=== PATIENT | female | born 1990 | race Caucasian/White ===

== ENCOUNTER 2019-11-01 14:40 | Emergency (ER) | payer OTHER ==
[~2019-11-01] VITALS: Ht 154.9 cm; Wt 68.2 kg
[~2019-11-01 14:40] MED LIST: DOCU5LIQ PO; IBUP80TA PO; PERC7.5T12 PO
[2019-11-01] MEDS ORDERED: ZOLO50TA PO (15:04)
[2019-11-01] MEDS ORDERED: PRENTAB53 PO (15:04)
[2019-11-01 15:28] LABS: BASO % 0.3 % (0.0-1.0); HEMATOCRIT 33.4 % (36.0-47.0); HEMOGLOBIN 11.3 g/dl (12.0-15.5); LYMPH # 1.4 10^3/uL (1.5-5.0); LYMPH % 9.9 % (24.0-44.0); MEAN CORPUSCULAR HEMOGLOBIN 30.9 pg (27.0-33.0); MEAN CORPUSCULAR HGB CONC 33.8 g/dl (32.0-36.5); MEAN CORPUSCULAR VOLUME 91.3 fl (80.0-96.0); MONO # 0.4 10^3/uL (0.0-0.8); MONO % 2.7 % (0.0-5.0); NEUTROPHILS # 12.5 10^3/uL (1.5-8.5); NEUTROPHILS % 86.5 % (36.0-66.0); PLATELET COUNT, AUTOMATED 341 10^3/uL (150-450); RED BLOOD COUNT 3.66 10^6/uL (4.00-5.40); WHITE BLOOD COUNT 14.4 10^3/uL (4.0-10.0)
[2019-11-01] MEDS ORDERED: NS 1,000 ML IV ONE ×2 (15:45→18:00)
[2019-11-01 16:11] LABS: BLOOD UREA NITROGEN 14 MG/DL (7-18); CALCIUM LEVEL 9.2 MG/DL (8.5-10.1); CARBON DIOXIDE LEVEL 23 MEQ/L (21-32); CHLORIDE LEVEL 107 MEQ/L (98-107); GLOMERULAR FILTRATION RATE > 60.0 (>60); GLUCOSE, FASTING 133 MG/DL (70-100); HCG, SERUM QUANTITATIVE 2273 MIU/ML; POTASSIUM SERUM 3.9 MEQ/L (3.5-5.1); SODIUM LEVEL 139 MEQ/L (136-145)
[2019-11-01] MEDS ORDERED: ACETAMINOPHEN TAB 650MG DOSE (2X325MG) PO ONE (16:30)
--- NOTE | 2019-11-01 18:02 | REP ---
PELVIC ULTRASOUND: Real-time sonographic evaluation of the pelvis was performed utilizing transabdominal technique. The uterus measures 13.7 x 4.3 x 6.6 cm. In the posterior myometrium i suspect there is a hypoechoic fibroid 1.2 x 0.9 x 1.5 cm. Endometrial echo complex is thin in the region of the fundus measuring approximately 4 mm in AP dimension, however inferiorly in the lower uterine segment and cervix there is an oval heterogenous hypoechoic area which measures 6.2 x 4.1 x 4.8 cm which I suspect represents large blood clot and retained products of conception. I see no adnexal mass or free fluid. Right ovary measures 2.4 x 2.1 x 2.1 cm and left ovary 3.2 x 1.3 x 2.4 cm. Blood flow is seen in each ovary with duplex Doppler evaluation, with no torsion. The findings above likely represent an in progress. Please correlate clinically as well as with quantitaive serial beta HCG values. Electronically Signed by Anastacio Bowers MD 11/02/2019 10:09 A
[2019-11-01 20:30] VITALS: BP 121/69
== END 2019-11-01 21:15 | disposition home or self-care (01) ==
LOC: M ED 14:40
DX: O03.4 Incomplete spontaneous abortion without complication (principal); O26.819 Pregnancy related exhaustion and fatigue, unspecified trimester; O20.8 Other hemorrhage in early pregnancy; O99.340 Other mental disorders complicating pregnancy, unspecified trimester; Z3A.00 Weeks of gestation of pregnancy not specified; Z79.899 Other long term (current) drug therapy

== ENCOUNTER 2019-11-03 16:10 | Day surgery (SDC) | payer OTHER ==
[~2019-11-03] VITALS: Ht 154.9 cm; Wt 68.0 kg
[~2019-11-03 16:10] MED LIST changes: +LIDOCAINE 1% MDV 20ML VIAL SQ PRN; +NS 1,000 ML IV SCH; +PRENTAB53 PO; +ZOLO50TA PO
[2019-11-03] MEDS ORDERED: ONDANSETRON 4MG/2ML VIAL (J2405) As Ordered ONE (16:23)
[2019-11-03] MEDS ORDERED: PROPOFOL 200 MG/20 ML VIAL As Ordered ONE (16:23)
[2019-11-03] MEDS ORDERED: dexameTHASONE 4 MG/ML 1ML VIAL (J1100) As Ordered ONE (16:23)
[2019-11-03] MEDS ORDERED: LIDOCAINE 2% INJ 100 MG/5 ML SDV (FOR ANES.) As Ordered ONE (16:23)
[2019-11-03] MEDS ORDERED: fentaNYL 100 MCG/2 ML INJECTION (J3010) As Ordered ONE (16:24)
[2019-11-03] MEDS ORDERED: MIDAZOLAM INJ 2 MG/2 ML VIAL (J2250) As Ordered ONE (16:24)
[2019-11-03] MEDS ORDERED: NS 1,000 ML IV SCH (16:30)
[2019-11-03] MEDS ORDERED: ACETAMINOPHEN 650 MG SUPP PR ONE (16:30)
[2019-11-03 16:41] LABS: MEAN CORPUSCULAR HEMOGLOBIN 30.5 pg (27.0-33.0); MEAN CORPUSCULAR HGB CONC 32.8 g/dl (32.0-36.5); PLATELET COUNT, AUTOMATED 291 10^3/uL (150-450); RED BLOOD COUNT 2.13 10^6/uL (4.00-5.40); WHITE BLOOD COUNT 11.6 10^3/uL (4.0-10.0)
[2019-11-03 16:47] LABS: HEMATOCRIT 19.8 % (36.0-47.0); HEMOGLOBIN 6.5 g/dl (12.0-15.5)
[2019-11-03 16:54] LABS: BLOOD UREA NITROGEN 16 MG/DL (7-18); CALCIUM LEVEL 8.3 MG/DL (8.5-10.1); CARBON DIOXIDE LEVEL 25 MEQ/L (21-32); CHLORIDE LEVEL 109 MEQ/L (98-107); CREATININE FOR GFR 0.63 MG/DL (0.55-1.30); GLOMERULAR FILTRATION RATE > 60.0 (>60); GLUCOSE, FASTING 86 MG/DL (70-100); POTASSIUM SERUM 3.6 MEQ/L (3.5-5.1); SODIUM LEVEL 141 MEQ/L (136-145)
[2019-11-03 16:59] LABS: HCG, SERUM QUALITATIVE POSITIVE (NEGATIVE)
[2019-11-03] MEDS ORDERED: LACTATED RINGERS IV SCH (17:45)
[2019-11-03] MEDS ORDERED: LR 1,000 ML IV SCH (17:45)
[2019-11-03] MEDS ORDERED: SUCCINYLCHOLINE 100 MG/5 ML SYRINGE (J0330) As Ordered ONE (17:58)
[2019-11-03 18:20] VITALS: BP 107/58
[2019-11-03 18:54] VITALS: BP 112/57
[2019-11-03 20:11] LABS: HEMATOCRIT 22.9 % (36.0-47.0); HEMOGLOBIN 7.7 g/dl (12.0-15.5)
[2019-11-03 21:36] LABS: HCG, SERUM QUANTITATIVE 666 MIU/ML
[2019-11-03] MEDS ORDERED: miSOPROStol 200 MCG TAB (S0191) As Ordered ONE (21:41)
[2019-11-03] MEDS ORDERED: ACETAMINOPHEN 650 MG SUPP As Ordered ONE (21:42)
[2019-11-03] MEDS ORDERED: OXYTOCIN INJ 10 UNITS/ML VIAL (J2590) As Ordered ONE ×2 (22:03→22:13)
[2019-11-03] MEDS ORDERED: PHENYLephrine HCL 500 MCG/5 ML (100MCG/ML) SYRINGE (J2370) As Ordered ONE (22:08)
[2019-11-03] MEDS ORDERED: ceFAZolin 2 GM/D5W 50 ML IV BAG (J0690 PER 500MG) As Ordered ONE (22:13)
[2019-11-03] MEDS ORDERED: MEPERIDINE INJ 25 MG/ML VIAL (J2175) As Ordered ONE (22:38)
[2019-11-03] MEDS ORDERED: MEPERIDINE INJ 25 MG/ML VIAL (J2175) IV PRN (23:00)
[2019-11-03] MEDS ORDERED: fentaNYL 100 MCG/2 ML INJECTION (J3010) IV PRN (23:00)
[2019-11-03] MEDS ORDERED: oxyCODONE 5MG TAB PO PRN (23:00)
[2019-11-03] MEDS ORDERED: ONDANSETRON 4MG/2ML VIAL (J2405) IV PRN (23:00)
[2019-11-03 23:06] VITALS: BP 111/65
[2019-11-03 23:21] VITALS: BP 104/61
[2019-11-03 23:50] VITALS: BP 99/59
[2019-11-04] VITALS (8 sets, daily range): BP systolic 97–106; BP diastolic 54–66
[2019-11-04] MEDS: KETOROLAC 30 MG/ML VIAL (J1885) IV SCH ×2 (01:29→06:16)
[2019-11-04 05:29] LABS: HEMATOCRIT 30.3 % (36.0-47.0); MEAN CORPUSCULAR HEMOGLOBIN 29.7 pg (27.0-33.0); MEAN CORPUSCULAR HGB CONC 33.7 g/dl (32.0-36.5); MEAN CORPUSCULAR VOLUME 88.3 fl (80.0-96.0); PLATELET COUNT, AUTOMATED 208 10^3/uL (150-450); RED BLOOD COUNT 3.43 10^6/uL (4.00-5.40); WHITE BLOOD COUNT 10.2 10^3/uL (4.0-10.0)
[2019-11-04 05:32] LABS: HEMOGLOBIN 10.2 g/dl (12.0-15.5)
[2019-11-04] MEDS ORDERED: FLUBLOK(EGG FREE)(QUAD)INFLUENZA VACC 0.5ML SYRINGE (90682)18YRS&OLDER IM ONE (07:30)
--- NOTE | 2019-11-04 19:35 | DSES ---
DATE OF ADMISSION: 11/03/2019 DATE OF DISCHARGE: 11/04/2019 This lady is a 4, para 3 who was admitted through emergency with a history of spontaneous of over two days duration. When she was seen initially, she appeared to be hypotensive, pale, tachycardia, and she was bleeding moderately per vagina. Her initial hemoglobin was 6.5, hematocrit was 19.8. She was given two units of packed cells prior to being taken to the operating room (OR) and her hemoglobin went to 7.7, hematocrit of 22.9. Despite that, she was taken to the OR, had a suction dilation and curettage (D C), a moderate amount of tissue and placenta and clots were removed and evacuated. The uterus was contracted well down on Pitocin. She was given Cytotec 1000 mg per rectum. She had two more units of packed cells and her stabilized hemoglobin was 10.2, hematocrit 30.3. Vital signs on discharge, her blood pressure 106/62, respirations 16, pulse 70, temperature 97.7. She had been afebrile throughout the entire procedure. She was given prophylactic antibiotics prior to the procedure commencing. We discussed phlebitis, cystitis, mastitis, endometritis and cellulitis, diet, exercise, pain management, perineal and wound care. The rest of the examination was unremarkable. Normocephalic, atraumatic. Neck: Full range of motion. Pupils equal and reactive to light. Distal pulses are symmetric. No evidence of deep vein thrombosis (DVT), pulmonary embolism (PE) or superficial phlebitis. Chest is clear bilaterally to bases. No wheezes or rhonchi. No costovertebral angle (CVA) tenderness. No rashes, lesions or pruritus. No arthralgia or myalgia. No complaint of joint pain. No complaint of cough, wheeze, shortness of breath or dyspnea on exertion. Her bleeding has been minimal. She is now pain-free pelvically. She was dispensed with medications. She has a two-week followup with Dr. Small. She was counseled regarding fever, increased bleeding, when to call her provider. In summary, we have a spontaneous late with a category III hemorrhage, discharged improved.
--- NOTE | 2019-11-24 13:50 | RO ---
DATE OF PROCEDURE: 11/03/2019 PREOPERATIVE DIAGNOSES: Anemia, hypotension, retained products of conception. POSTOPERATIVE DIAGNOSES: Anemia, retained products of conception, vaginal bleeding. OPERATION PROPOSED: Suction curettage. OPERATION PERFORMED: Suction curettage. SURGEON: Chris Small MD LEAD NET SOFTWARE DEVELOPER: ANESTHESIA: General. ESTIMATED BLOOD LOSS: 600 mL. DESCRIPTION OF PROCEDURE: This lady had a missed and had followed up with her primary care subsequently came to see BOROUGH COORDINATOR and while in the office had a hypotensive episode with tachycardia, orthopnea and was sent to the holding unit for urgent blood transfusion. After adequate stabilization with 2 units of packed cells onboard, after adequate time-out, prepped and draped in the lithotomy position, a Farris catheter in the bladder draining clear urine. Weighted speculum in the vagina we noticed a large mass of placental tissue and clot organized through an almost completely dilated cervix. This was removed and there was moderate amount of bleeding. Suction curettage was done with a #12 suction curette. Eventually all the retained products were removed from the uterus. The uterus took a significant time to contract down. Pitocin was running. The patient was given Cytotec 1000 per rectum and vigorous massage. The uterus eventually contracted well down and we had well over 600 mL of clot and fresh blood. The patient had received appropriate antibiotic coverage preoperative procedure. The patient was sent to recovery room in stable condition requiring two more units of packed cells.
== END 2019-11-04 09:00 | disposition home or self-care (01) ==
LOC: M SDC 16:10 → M PED 23:43 → M SDC 11-04 09:00
PROVIDERS: ATTEND Obstetrics & Gynecology
DX: D62 Acute posthemorrhagic anemia (principal); I95.9 Hypotension, unspecified; O03.1 Delayed or excessive hemorrhage following incomplete spontaneous abortion; R00.0 Tachycardia, unspecified; R06.01 Orthopnea; F41.9 Anxiety disorder, unspecified
CPT/HCPCS: 36415; 36430; 59820; 80048; 84702; 84703; 85014; 85018; 85027; 86850; 86900; 86901; 86920; 88305; 90682; J0330; J0690; J1100; J1885; J2175; J2250; J2370; J2405; J2590; J3010; P9016

== ENCOUNTER 2020-08-07 05:28 | Inpatient (IN) | payer OTHER ==
--- NOTE | 2020-08-02 08:25 | HPE ---
DATE OF ANTICIPATED ADMISSION: 08/09/2020 HISTORY OF PRESENT ILLNESS: This lady is a 29-year-old 5 para 3 who is admitted for elective repeat section and satisfied parity bilateral tubal ligation by Filshie clip. PAST MEDICAL HISTORY: August 2012 at 40 weeks section, 10 pounds 11 ounces macrosomic . October 2104 at 39 weeks repeat section macrosomic , 9 pounds 10 ounces, AGDM2. July 2016 at 38 weeks, repeat section male, 8 pounds 6 ounces. October 2019, spontaneous at 11 weeks with D and C. LAB VALUES: She is A positive, HIV negative, Hep negative, RPR negative, Rubella immune, Varicella immune. Pap is normal. Urine was positive for mixed group and Group B strep. Gonorrhea and Chlamydia are negative. One hour glucose was 149. Her 28 week glucose was 167. Her 3 hour glucose fasting was 167. Her 3 hour glucose fasting was 100, one hour was 146, two hour was 142, and three hour was 55. She has been on Metformin 500 mg p.o. daily and is well controlled. PHYSICAL EXAMINATION: On examination today, blood pressure 118/77, respirations are 18, pulse is 100, and she is afebrile. Her initial BMI was 30.42, presently she is 51 at 178 pounds. The rest of the examination is unremarkable. Normocephalic, atraumatic. Neck full range of motion. Pupils are equal and reactive to light. Distal pulses are symmetric. No evidence of DVT, PE, or superficial phlebitis. Chest is clear bilaterally to bases. No wheezes or rhonchi. No CVA tenderness. Abdomen is soft. Four quadrant bowel sounds are noted. Incision is present and nontender. She has no rashes, lesions, or pruritus. No arthralgia or myalgia. No complaint of joint pain. No complaint of cough, shortness of breath, or dyspnea on exertion. No nausea, vomiting, diarrhea, or constipation. No urgency or frequency. ASSESSMENT: In discussion of repeat section and bilateral tubal ligation, risks were discussed, hemorrhage, infection, perforation, , re- operation with remote possibility of hysterectomy for life threatening bleeding issues, and remote possibility of blood transfusion. There is also a remote possibility of laceration and/or admission to the NICU. With all discussions, the patient expressed understanding of the risks and benefits. In regards to her tubal ligation, risk of failure is less than 1%, risk of tubal ligation syndrome was discussed, and chronic pelvic pain or heavy periods was also discussed. Expressed understanding of same. Signed consent form. All questions were answered. A 40 minute discussion with examination. The patient is booked for repeat section and bilateral tubal ligation on August 09, 2020. MARKIE
[~2020-08-07] VITALS: Ht 154.9 cm; Wt 80.5 kg
[~2020-08-07 05:28] MED LIST changes: -LIDOCAINE 1% MDV 20ML VIAL SQ PRN; +METF500T13 PO; -NS 1,000 ML IV SCH
[2020-08-07] MEDS ORDERED: AZITHROMYCIN INJ 500MG VIAL (J0456 PER 500MG) As Ordered ONE (05:48)
[2020-08-07] MEDS ORDERED: ceFAZolin 2 GM/D5W 50 ML IV BAG (J0690 PER 500MG) As Ordered ONE (05:48)
[2020-08-07] MEDS ORDERED: BICITRA 30ML SOLN UDC As Ordered ONE (05:48)
[2020-08-07] MEDS ORDERED: TERBUTALINE SULFATE 1 MG/ML VIAL (J3105) As Ordered ONE (05:52)
[2020-08-07 06:22] LABS: HEMATOCRIT 42.1 % (36.0-47.0); HEMOGLOBIN 14.3 g/dl (12.0-15.5); MEAN CORPUSCULAR HEMOGLOBIN 29.7 pg (27.0-33.0); MEAN CORPUSCULAR VOLUME 87.5 fl (80.0-96.0); PLATELET COUNT, AUTOMATED 337 10^3/uL (150-450); RED BLOOD COUNT 4.81 10^6/uL (4.00-5.40); WHITE BLOOD COUNT 13.6 10^3/uL (4.0-10.0)
[2020-08-07] MEDS ORDERED: MORPHINE PRES-FREE INJ 10 MG/10 ML VIAL (J2274) As Ordered ONE (06:22)
[2020-08-07] MEDS ORDERED: OXYTOCIN INJ 10 UNITS/ML VIAL (J2590) As Ordered ONE (06:24)
[2020-08-07] MEDS ORDERED: LACTATED RINGER'S 1000 ML IV STA (06:25)
[2020-08-07] MEDS ORDERED: LR 1,000 ML IV SCH ×3 (06:25→09:00)
[2020-08-07] MEDS ORDERED: AZITHROMYCIN INJ 500 MG, VIAL MATE ADAPTER 1 EACH in D5W 250 ML IV ONE (06:30)
[2020-08-07] MEDS ORDERED: TERBUTALINE SULFATE 1 MG/ML VIAL (J3105) SC ONE (06:30)
[2020-08-07] MEDS ORDERED: ceFAZolin SOD 2 GM in IV 1 EA IV ONE (06:30)
[2020-08-07] MEDS ORDERED: BICITRA 30ML SOLN UDC PO ONE (06:30)
[2020-08-07] MEDS ORDERED: BUPIVACAINE HCL 0.25% 10ML VIAL As Ordered ONE (06:36)
[2020-08-07] MEDS ORDERED: METOCLOPRAMIDE INJ 10MG/2ML VIAL (J2765 PER 1) IV PRN ×2 (06:44→09:00)
[2020-08-07] MEDS ORDERED: NALOXONE INJ 0.4MG/1ML VIAL (J2310 PER 1MG) IV PRN ×2 (06:44)
[2020-08-07] MEDS ORDERED: diphenhydrAMINE 50MG/ML VIAL (J1200) IV PRN (06:44)
[2020-08-07] MEDS ORDERED: NALBUPHINE HCL 10 MG/ML AMP (J2300) IV PRN (06:44)
[2020-08-07] MEDS ORDERED: ONDANSETRON 4MG/2ML VIAL IV PRN ×3 (06:44→09:00)
[2020-08-07] MEDS ORDERED: ONDANSETRON 4MG/2ML VIAL As Ordered ONE (06:57)
[2020-08-07] MEDS ORDERED: dexameTHASONE 4 MG/ML 1ML VIAL (J1100 PER 1MG) As Ordered ONE (06:57)
[2020-08-07] MEDS ORDERED: PHENYLephrine HCL 500 MCG/5 ML (100MCG/ML) SYRINGE (J2370) As Ordered ONE (06:57)
[2020-08-07] MEDS ORDERED: KETOROLAC 60MG 2ML VIAL As Ordered ONE (06:57)
--- NOTE | 2020-08-07 07:07 | HPE ---
DATE OF ANTICIPATED ADMISSION: 08/09/2020 This lady is a 30-year-old 5, para 3, abortio 1 at 39 weeks of gestation. Her last menstrual period (LMP) is 11/10/2019. Estimated date of confinement (EDC) is 08/16/2020. She is booked for elective repeat section times four. PAST HISTORY: In August 2012, macrosomic infant, primary section at term, 10 pounds 11 ounces. Repeat section October 2014 at 39 weeks, AGDM2, gestational diabetic, 9-pound . In 2015, repeat section, 38 weeks, 8 pounds 6 ounces. October 2019 had a spontaneous with dilatation and curettage (D&C), category 3 hemorrhage. Required 2 units of pack cells. Initial hemoglobin 6.5, hematocrit 19.8. RISK FACTORS: She has had three previous sections. She has had a blood transfusion. She is an AGDM2. She has significant anxiety. LABORATORY DATA: She is A positive, hepatitis B negative, RPR nonimmune, HIV negative, rubella immune, Varicella immune. Pap is negative. Her initial 1-hour glucose was 149. Her 3-hour GTT fasting was 100, her 1-hour was 146, her 2-hour was 142, and her 3-hour was 55. She has been doing her blood sugars and is in good control at the present time. She is GBS positive in her urine. PHYSICAL EXAMINATION: Today, no acute distress. Symphysis fundus height is appropriate. Four-quadrant bowel sounds are noted. Vertex presenting. heart rate is 140 beats per minute. Her weight is 180 pounds. Her body mass index (BMI) is 33.63. She is afebrile. Blood pressure is normal, as are respirations. The rest of the examination is unremarkable. Normocephalic, atraumatic. The rest of the examination is unremarkable. Normocephalic, atraumatic. Neck: Full range of motion. Pupils equal and reactive to light. Distal pulses are symmetric. No evidence of deep venous thrombosis (DVT), pulmonary embolus (PE), or superficial phlebitis. She has no rashes, lesions, or pruritus. No arthralgia, myalgia. No complaints of joint pain. No complaint of cough, wheeze, shortness of breath, or dyspnea on exertion. She has no urgency or frequency. No nausea, vomiting, diarrhea, or constipation. Diabetic issues are resolved with her normalization of her blood sugar on diet and monitoring her own blood sugars. We discussed the risks and benefits of section, being this is her fourth, which it may include hemorrhage, infection, perforation, , reoperation, remote possibility of blood transfusion, remote possibility of hysterectomy for uncontrolled bleeding, remote possibility of laceration or admission to the intensive care unit (NICU) because of blood sugars. Other risk factors would be scratches or hematoma to the infant's head. Postoperative infection complication may be an issues. After discussing risks and benefits of the surgery and also discussing tubal ligament with the failure rate of less than 1%, patient expressed understanding of all the issues, signed the consent form. All questions were answered. A 40-minute discussion with examination. The patient is booked for 08/09/2020. We await anesthesia consult. There will be appropriate antibiotics preoperative and appropriate analgesics preoperatively. Again, reviewing, all questions were answered. The patient signed the consent form. MARKIE
--- NOTE | 2020-08-07 07:10 | IPNPDOC ---
Obstetrical Progress Note Date of Service Aug 07, 2020 Subjective Patient reporting her water broke at 0400 and onset of strong painful ctx's. She reports history of 3 prior section and desires RLTCS with BTL. Assessment Heart Rate (FHR): 140 Variability: Moderate Accelerations: Positive Decelerations: None Heart Rate Tracing: Category I Tocometer Contractions: Yes Frequency: every 1-3 min. Sterile Vaginal Examination Dilation: 6 cm Effacement (%): 100% Station: -2 Cervical Consistency: Soft Cervical Position: Anterior Postion/Presentation: Cephalic presentation Assessment and Plan Status: Reassuring Group B Streptococcus: Positive Anticipate: Section Additional Comments 30yo at 38+5wks presenting in active labor with SROM of clear fluid. Patient declines PIERRE, with patient's CPD on my exam, and h/o 3 prior c/s patient counseled on recommendation to proceed with RLTCS. Due to OR team unavailability at the time of presentation, patient given IV fluid bolus of 1000ml LR and 0.25mg of terbutaline with decrease in frequency of ctx's. FHR cat I. Upon OR team availability, transfer of care to Dr. Ann to proceed with RLTCS w/BTL. LAIDA MALONE DO Aug 07, 2020 07:10
[2020-08-07] MEDS ORDERED: OXYTOCIN DRIP 30 UNITS in IV 1 EA IV SCH (07:39)
[2020-08-07] MEDS ORDERED: PERCOCET 5MG/325MG TAB PO PRN ×3 (07:45→09:00)
[2020-08-07] MEDS ORDERED: RHOGAM 300 MCG (1500 IU) INJ (J2790) IM SCH (07:45)
[2020-08-07] MEDS ORDERED: MOM 30ML SUSPENSION UDC PO PRN (07:45)
[2020-08-07] MEDS ORDERED: MEASLES,MUMPS,RUBELLA VACCINE INJ (MMR-II) (90707) SC SCH (07:45)
[2020-08-07 07:57] LABS: CORD GAS ABE A -8.5; CORD GAS HCO3 A 21.8 MEQ/L; CORD GAS O2 SAT A 26.8 %; CORD GAS PCO2 A 65.2 mmHg; CORD GAS PH A 7.142 UNITS; CORD GAS PO2 A 18.2 mmHg; CORD GAS SBC A 16.2 MEQ/L; CORD GAS TCO2 A 23.8 MEQ/L
[2020-08-07 07:59] LABS: CORD GAS ABE V -8.3; CORD GAS HCO3 V 19.4 MEQ/L; CORD GAS O2 SAT V 64.1 %; CORD GAS PCO2 V 47.7 mmHg; CORD GAS PH V 7.228 UNITS; CORD GAS PO2 V 32.4 mmHg; CORD GAS SBC V 17.2 MEQ/L; CORD GAS TCO2 V 20.9 MEQ/L
[2020-08-07] MEDS: DOCUSATE SODIUM 100 MG CAP PO SCH ×2 (09:00→22:24)
[2020-08-07] MEDS: PRENATAL VITAMINS CHEWABLE TABLET PO SCH (09:00)
[2020-08-07] MEDS ORDERED: fentaNYL 100 MCG/2 ML INJECTION (J3010) IV PRN (09:00)
[2020-08-07] MEDS ORDERED: OXYTOCIN 30 UNITS IN 0.9% NaCl 500ML IV BAG (J2590) As Ordered ONE (09:11)
--- NOTE | 2020-08-07 09:53 | DNPDOC ---
[facility] Delivery Note Delivery Note DATE OF DELIVERY: 08/07/20 PREDELIVERY DIAGNOSIS: 38+5/7 weeks' gestation and labor in the setting of history of x3 with desire for repeat and satsified parity POST DELIVERY DIAGNOSIS: same PROCEDURE: repeat delivery and bilateral tubal ligation SPRING MAKER: Dr. Edvin Santana DO ANESTHESIA: spinal ESTIMATED BLOOD LOSS: 700 mL. FINDINGS: 8 pound 3 ounce female infant, Score 9/9, nuchal cord times 0. DELIVERY SUMMARY: 30yo at 38+5wks presented to labor and delivery in active labor and history of x3 desiring repeat c-seciton with tubal ligation. The risks, benefits, and alteratives of the procedure were discussed and written consent was obtained. The patient was taken to the OR where she was placed under spinal anesthesia and positioned supine with a left lateral tilt. A montana was placed in the bladder and a final time out was performed. A pfannenstiel incision was then made with a scalpel and carried to the underlying fascia which was then scored. Dense scar tissue was noted during dissection. The fascial incision was carried bilaterally in a curvilinear fashion with the aid of curved mayen scissors and bovie cut. The superior fascial edge was grasped with koker clamps x2 and the muscle was bluntly dissected and sharply dissected with a scalpel on the right side. The muscle on the left side was absent at the midline with the bladder protruding through the defect just below the fascia. The lateral portion of the rectus muscle was in-tact. The bladder was carefully dissected from the underbelly of the left sided rectus muscles and the right sided fascia. The incision was bluntly extended and a bladder blade was placed. Adhesions from the bladder to the anterior uterus were then transsected using the metzambum scissors and carried to make a bladder flap. The bladder blade was replaced. The lower uterine segment was then identified and a transverse hysterotomy was made, the lower segment was notably quite thin. The baby's head was then lifted to the hysterotomy and with the aid of fundal pressure delivered followed by the corpus atraumatically. The baby had spontaneous movement and cry. The tone was good. After 60s of delayed cord clamping the cord was clamped and cut. The cord gasses and cord blood was obtained. The placenta was then manually expressed and noted to be in-tact. The uterus was unable to be delivered through the hysterotomy so an mobius retractor was placed. The hysterotomy was then closed with 0-monocryl in a running locking fashion and secured with an 0-monocryl horizontal imbricating layer. The surgical site had some global weeping but no brisk bleeding so pressure was applied with a lap, the uterus had good tone. The uterus, ovaries, and tubes were inspected to be normal. The bilateral fallopian tubes were grasped with the kermit clamp and a window was made in the mesosalpinx mid-tube. Plain-gut suture was then tied at each end of the window and the midsection resected. The tubal stubs were noted to be hemostatic. The hysterotomy was re-inspected and the venous oozing had mostly subsided, surgicil mesh was placed to aid in hemostasis. The muscle bellies were inspected and noted to be hemostatic with the aid of bovie cautery and bhavana powder due to muscle belly oozing on the left side. Re-inspection of the muscle bellies, hysterotomy, and tubal stubs were all hemostatic. The fascia was then closed with 0-PDS in a running fashion. The subcutaneous tissue was irrigated and was hemostatic with the aid of bovie cautery. The subcutaneous tissue was then reaproximated with 2-0 vicryl. The skin was reappoximated with 3-0 monocryl and secured with steri strips and a pressure dressing. There were no complications and the patient tolerated the procedure well. The sponge lap and needle counts were correct x2. EDVIN SANTANA DO Aug 07, 2020 09:53
[2020-08-07 10:45] VITALS: BP 120/71
[2020-08-07 11:15] VITALS: BP 116/63
[2020-08-07 12:15] VITALS: BP 109/59
[2020-08-07 13:15] VITALS: BP 107/60
[2020-08-07] MEDS ORDERED: KETOROLAC 30 MG/ML 1ML VIAL IV SCH (14:00)
[2020-08-07 18:00] VITALS: BP 116/62
[2020-08-07 22:00] VITALS: BP 107/58
[2020-08-07] MEDS: IBUPROFEN 800 MG TAB PO SCH (22:24)
[2020-08-08 02:00] VITALS: BP 100/60
[2020-08-08 06:00] VITALS: BP 110/61
[2020-08-08] MEDS: IBUPROFEN 800 MG TAB PO SCH ×3 (06:27→22:02)
[2020-08-08 06:57] LABS: HEMATOCRIT 32.4 % (36.0-47.0); MEAN CORPUSCULAR HEMOGLOBIN 30.1 pg (27.0-33.0); PLATELET COUNT, AUTOMATED 280 10^3/uL (150-450); RED BLOOD COUNT 3.56 10^6/uL (4.00-5.40)
[2020-08-08 07:07] LABS: HEMOGLOBIN 10.7 g/dl (12.0-15.5)
[2020-08-08] MEDS: DOCUSATE SODIUM 100 MG CAP PO SCH ×2 (08:26→22:01)
[2020-08-08] MEDS: PRENATAL VITAMINS CHEWABLE TABLET PO SCH (08:26)
[2020-08-08] MEDS ORDERED: INFLUENZA QUADRIVALENT PF VACCINE 0.5ML SYRINGE IM ONE (09:00)
[2020-08-08 10:08] VITALS: BP 115/72
--- NOTE | 2020-08-08 12:23 | IPNPDOC ---
Progress Note Date of Service: Aug 08, 2020 Day#: 1 Progress Note SUBJECT: [30yo POD1 s/p RCD/BTL at term. She has been ambulating, voiding spontaneously without issue and tolerating regular diet. Breast feeding without issue. Reports lochia is like a normal period. Patient is ambulating well. Reports some cramping with . Denies any pain. Voiding and passing flatus without difficulty. OBJECTIVE: VITAL SIGNS: Within normal limits, afebrile. Alert and oriented times three. Breath sounds clear to auscultation. Heart rate: Regular rate and rhythm, no murmurs, rubs or gallops. Abdomen: Fundus firm at U-2. Soft, NTTP. Pfannenstiel incision is clean dry and well approximated with steri strips [Minimal] lochia. ASSESSMENT: 30yo POD1 s/p RCD/BTL at term. Vitals within normal limits, afebrile, hemodynamically stable with no evidence of infection. PLAN: 1. Discharge to home today. 2. percocet and Motrin for pain. 3. Encourage breast feeding and ambulation. 4. BTL completed for contraception 5. Routine PP visit in 2 and 6 weeks in clinic. 6. Discussed return precautions at length. VS, I&O, 24H, Fishbone Vital Signs/I&O Vital Signs Date Time Temp Pulse Resp B/P (MAP) Pulse Ox O2 Delivery O2 Flow Rate FiO2 08/08/20 10:08 97.8 94 18 115/72 (86) 99 Room Air I&O- Last 24 Hours up to 6 AM 08/08/20 06:00 Intake Total 800 ml Output Total 1650 ml Balance -850 ml Laboratory Data 24H LABS Laboratory Tests 2 08/08/20 06:19: Nucleated Red Blood Cells % (auto) 0.0 CBC/BMP Laboratory Tests 08/08/20 06:19 BLAIR SANTANA DO Aug 08, 2020 12:23
[2020-08-08 14:02] VITALS: BP 107/59
[2020-08-08 18:03] VITALS: BP 111/58
[2020-08-08 22:00] VITALS: BP 120/64
[2020-08-09 02:00] VITALS: BP 125/78
[2020-08-09 06:00] VITALS: BP 115/66
[2020-08-09] MEDS: IBUPROFEN 800 MG TAB PO SCH (06:16)
--- NOTE | 2020-08-09 07:30 | DS.PDOC ---
Discharge Summary General Date of Admission Aug 07, 2020 at 05:28 Date of Discharge 08/09/2020 Primary Care Physician: BLAIR SANTANA DO Attending Physician: BLAIR SANTANA DO Discharge Summary PROCEDURES PERFORMED DURING STAY: Repeat delivery with bilateral tubal ligation. ADMITTING DIAGNOSES: 1. Active labor. DISCHARGE DIAGNOSES: 1., Repeat delivery with bilateral tubal ligation. COMPLICATIONS/CHIEF COMPLAINT: LABOR. HISTORY OF PRESENT ILLNESS:.30yo at 38+5wks presented to labor and delivery in active labor and history of x3 desiring repeat c-seciton with tubal ligation. section productive of a liveborn female infant, Apgars 9 and 9. Weight was 8 lbs. 3 oz. Patient did well postoperatively. By postoperative day #2, had met all discharge criteria. Endometriosis. Discharge home in stable condition DISCHARGE MEDICATIONS: Please see below. ALLERGIES: Please see below. PHYSICAL EXAMINATION ON DISCHARGE: VITAL SIGNS: Please see below. GENERAL: Well-appearing, no acute distress ABDOMINAL EXAMINATION: Soft, appropriately tender. Fundus below umbilicus. Incision was clean, dry, intact, well approximated with Steri-Strips EXTREMITIES:. Negative for calf tenderness NEUROLOGICAL EXAMINATION: Grossly intact LABORATORY DATA: Please see below. ACTIVITY: Remain on pelvic rest 6 weeks. DIET:, Regular DISCHARGE PLAN: Home DISCHARGE INSTRUCTIONS: 1. Follow up for 2 week incision check. 2. 3. Reports severe pain, heavy vaginal bleeding, fever, incisional issues. 3. Remain on pelvic rest for 6 weeks. DISCHARGE CONDITION: Stable. Vital Signs/I&Os Vital Signs Date Time Temp Pulse Resp B/P (MAP) Pulse Ox O2 Delivery O2 Flow Rate FiO2 08/09/20 06:00 97.6 72 16 115/66 (82) 96 Room Air Discharge Medications Scheduled Metformin HCl (Metformin HCl) 500 Mg Tablet, 500 MG PO DAILY, (Reported) Vit,Calc76/Iron/Folic (Prenatabs Rx Tablet) 1 Each Tablet, 1 TAB PO DAILY, (Reported) Allergies Coded Allergies: No Known Allergies (Unverified , 11/01/19) ARIANNE CORLEY MD. Aug 09, 2020 07:30
[2020-08-09] MEDS ORDERED: DOCU100C16 PO (08:09)
[2020-08-09] MEDS ORDERED: IBUP80TA PO (08:09)
[2020-08-09] MEDS ORDERED: PERCOCET PO (08:09)
[2020-08-09] MEDS: DOCUSATE SODIUM 100 MG CAP PO SCH (08:15)
[2020-08-09] MEDS: PRENATAL VITAMINS CHEWABLE TABLET PO SCH (08:15)
== END 2020-08-09 11:55 | disposition home or self-care (01) | DRG 785 ==
LOC: M LDI 05:28 → M OBS 10:30
PROVIDERS: ADMIT Obstetrics & Gynecology; ATTEND Obstetrics & Gynecology
PROC: 0UB70ZZ Excision of Bilateral Fallopian Tubes, Open Approach (ICD-10-PCS; 2020-08-07)
PROC: 10D00Z1 Extraction of Products of Conception, Low, Open Approach (ICD-10-PCS; principal; 2020-08-07 07:00)
DX: O34.211 Maternal care for low transverse scar from previous cesarean delivery (principal); Z37.0 Single live birth; Z3A.38 38 weeks gestation of pregnancy; Z30.2 Encounter for sterilization; O99.824 Streptococcus B carrier state complicating childbirth